=== PATIENT | female | born 1970 | race Two or more races ===

== ENCOUNTER 2016-12-27 05:13 | Emergency (ER) | payer BC, OTHER ==
[~2016-12-27 05:13] MED LIST: ADDERALL 10 MG10 M2 PO; ADVAIR 1001 DISK W/D; ASPIR 8181 MG PO; MAXALT10 MG PO; NEXIUM20 MG; NEXIUM40 M1 PO; NEXIUM40 MG PO; NORCO 5/325 TAB1 TAB PO; NORCO 7.5-3251 EACH PO; NORCO 7.5/325 T1 TAB PO; OMEPRAZOLE20 M2 PO; PERCOCET 7.5/321 TA1 PO; PHENERGAN25 M1 PO; PREDNISONE20 MG PO; PROMETHEGA25 MG/SUPP RC; TOPAMAX100 MG; TOPAMAX50 MG PO; VENTOLIN17 GM; XANAX0.5 M1 PO; XANAX0.5 MG PO; ZEGERID OTC 201 EACH PO; ZOFRAN ODT4 MG/UDTAB PO; ZOMIG ZMT5 MG/TAB; ZOMIG5 MG PO
[2016-12-27] MEDS ORDERED: CHANTIX0.5 MG/TAB PO (05:25)
[2016-12-27] MEDS ORDERED: TOPAMAX50 M3 PO (05:26)
[2016-12-27 05:51] LABS: BASO % 0.6 % (0-2); EOS % 1.6 % (0-7); EOSINOPHIL ABSOLUTE COUNT 0.1 tho/cmm (0.0-0.7); HCT-HEMATOCRIT 45.5 % (34.0-49.0); IMMATURE GRANULOCYTES ABSOLUTE 0.01 tho/cmm (0-0.03); IMMATURE GRANULOCYTES PERCENT 0.2 % (0-0.3); LYMPH % 31.7 % (20-45); LYMPH ABSOLUTE COUNT 1.6 tho/cmm (0.8-4.5); MCH (MEAN CORPUSCULAR HGB) 28.8 pg (28.0-32.0); MCV (MEAN CELL VOLUME) 87.3 fl (82.0-96.0); MEAN PLATELET VOLUME 12.7 cmc (9.4-12.4); MONO % 8.2 % (0-12); MONOCYTE ABSOLUTE COUNT 0.4 tho/cmm (0.0-1.2); NEUTROPHIL ABSOLUTE COUNT 2.9 tho/cmm (1.6-8.0); NEUTROPHIL-AUTOMATED 2.9 tho/cmm (1.6-8.0); NEUTROPHILS % 57.7 % (40-80); PLATELET COUNT 212 tho/cmm (150-450); RED BLOOD COUNT 5.21 mil/cmm (4.00-5.20); RED CELL DISTRIBUTION WIDTH 13.6 % (12.4-16.4)
[2016-12-27 06:03] LABS: PREGNANCY-SERUM NEGATIVE (NEGATIVE)
[2016-12-27 06:06] LABS: ANION GAP 14 mmol/L (0-20); BLOOD UREA NITROGEN 19 mg/dl (6-24); CALCIUM 9.3 mg/dl (8.5-10.5); CARBON DIOXIDE-VENOUS 22 mmol/L (22-32); CHLORIDE 111 mmol/l (96-110); CREATININE 0.99 mg/dl (0.50-1.10); GLUCOSE 96 mg/dL (70-110); SODIUM 143 mmol/L (135-145); eGFR VALUE FOR BLACK 80 mL/Min
[2016-12-27 06:24] LABS: POTASSIUM 4.1 mmol/L (3.7-5.1)
[2017-04-30] MEDS ORDERED: NORVASC2.5 M1 PO (21:56)
[2017-04-30] MEDS ORDERED: PLAQUENIL200 M1 PO (21:58)
[2017-04-30] MEDS ORDERED: NEURONTIN300 M1 PO (21:58)
[2017-04-30] MEDS ORDERED: PREDNISONE5 M1 PO (21:59)
== END 2016-12-27 06:38 ==
LOC: EDMED 05:13
PROVIDERS: Emergency Medicine
DX: R07.1 Chest pain on breathing (principal); Z87.891 Personal history of nicotine dependence
CPT/HCPCS: J2405; J7030

== ENCOUNTER 2017-02-05 17:55 | Emergency (ER) | payer BC, OTHER ==
[~2017-02-05 17:55] MED LIST changes: +CHANTIX0.5 MG/TAB PO; +TOPAMAX50 M3 PO
[2017-02-05] MEDS ORDERED: PROVIGIL200 M1 PO (18:17)
[2017-02-05] MEDS ORDERED: OMEGA 3 1,0001 EAC1 PO (18:18)
[2017-02-05] MEDS ORDERED: VITAMIN D50000 UNI2 PO (18:18)
[2017-02-05 19:01] LABS: BASO % 0.5 % (0-2); EOS % 2.1 % (0-7); EOSINOPHIL ABSOLUTE COUNT 0.1 tho/cmm (0.0-0.7); HCT-HEMATOCRIT 40.5 % (34.0-49.0); HGB-HEMOGLOBIN 13.1 gm/dl (12.0-15.5); IMMATURE GRANULOCYTES ABSOLUTE 0.01 tho/cmm (0-0.03); IMMATURE GRANULOCYTES PERCENT 0.2 % (0-0.3); LYMPH % 34.6 % (20-45); LYMPH ABSOLUTE COUNT 1.5 tho/cmm (0.8-4.5); MCH (MEAN CORPUSCULAR HGB) 28.9 pg (28.0-32.0); MCHC MEAN CORPUSCULAR HGB CONC 32.3 % (32.0-36.0); MCV (MEAN CELL VOLUME) 89.2 fl (82.0-96.0); MONO % 5.5 % (0-12); MONOCYTE ABSOLUTE COUNT 0.2 tho/cmm (0.0-1.2); NEUTROPHIL ABSOLUTE COUNT 2.5 tho/cmm (1.6-8.0); NEUTROPHIL-AUTOMATED 2.5 tho/cmm (1.6-8.0); NEUTROPHILS % 57.1 % (40-80); PLATELET COUNT 172 tho/cmm (150-450); RED BLOOD COUNT 4.54 mil/cmm (4.00-5.20); RED CELL DISTRIBUTION WIDTH 13.8 % (12.4-16.4); WHITE BLOOD COUNT 4.4 tho/cmm (4.0-10.0)
[2017-02-05 19:10] LABS: PREGNANCY-SERUM NEGATIVE (NEGATIVE)
[2017-02-05 19:16] LABS: ALB/GLOB RATIO 0.9 (0.8-2.0); ALBUMIN 3.2 g/dl (3.5-5.0); ALKALINE PHOSPHATASE 59 U/L (33-138); ALT/SGPT 26 U/L (12-78); AMYLASE 67 U/L (20-90); ANION GAP 13 mmol/L (0-20); AST/SGOT 21 U/L (10-40); BILIRUBIN,TOTAL 0.2 mg/dl (0-1.5); BLOOD UREA NITROGEN 12 mg/dl (6-24); CALCIUM 9.1 mg/dl (8.5-10.5); CARBON DIOXIDE-VENOUS 23 mmol/L (22-32); CHLORIDE 112 mmol/l (96-110); CREATININE 0.74 mg/dl (0.50-1.10); GLUCOSE 98 mg/dL (70-110); LIPASE 154 U/L (73-393); POTASSIUM 3.8 mmol/L (3.7-5.1); SODIUM 144 mmol/L (135-145); eGFR VALUE FOR BLACK >90 mL/Min
[2017-02-05 19:57] LABS: URINE BILIRUBIN NEGATIVE (NEG); URINE BLOOD NEGATIVE (NEG); URINE GLUCOSE (UA) NEGATIVE (NEG); URINE KETONE NEGATIVE (NEG); URINE LEUKOCYTE ESTERASE POSITIVE (NEG); URINE NITRITE NEGATIVE (NEG); URINE PROTEIN NEGATIVE (NEG); URINE SPECIFIC GRAVITY 1.015 (1.003-1.030)
[2017-02-05 19:58] LABS: URINE APPEARANCE CLEAR; URINE COLOR YELLOW
[2017-02-05 20:06] LABS: URINE EPITHELIAL CELLS 0 /[HPF] (0-10); URINE RBC 0 /[HPF] (0-5); URINE WBC RARE /[HPF] (0-5)
[2017-02-05] MEDS ORDERED: ZOFRAN ODT4 MG PO (21:02)
[2017-04-30] MEDS ORDERED: NORVASC2.5 M1 PO (21:56)
[2017-04-30] MEDS ORDERED: NEURONTIN300 M1 PO (21:58)
[2017-04-30] MEDS ORDERED: PLAQUENIL200 M1 PO (21:58)
[2017-04-30] MEDS ORDERED: PREDNISONE5 M1 PO (21:59)
== END 2017-02-05 21:21 ==
LOC: EDMED 17:55
PROVIDERS: Physician Assistant
DX: R10.9 Unspecified abdominal pain (principal); R11.0 Nausea; F41.9 Anxiety disorder, unspecified; K21.9 Gastro-esophageal reflux disease without esophagitis; Z90.89 Acquired absence of other organs; Z87.891 Personal history of nicotine dependence; Z79.899 Other long term (current) drug therapy
CPT/HCPCS: J2405; J7030; Q9967